=== PATIENT | female | born 1950 | race Asian ===

== ENCOUNTER 2018-03-17 15:44 | Emergency (ER) | payer MEDICARE, BC, MEDICAID ==
[~2018-03-17] VITALS: Ht 157.5 cm; Wt 61.2 kg
[2018-03-17 15:51] VITALS: BP 106/67
[2018-03-17] MEDS ORDERED: SILVER SULFADIAZINE CREAM 25 GM TUBE ONE (16:02)
--- NOTE | 2018-03-17 16:07 | NUR ---
PER DR. CORRAL, APPLY SILVADENE CREAM TO AFFECTED AREA. MEDICATION PULLED, WOUND CARE RENDERED, TOLERATED WELL.
[2018-03-17] MEDS ORDERED: SILVER SULFADIAZINE CREAM 25 GM TUBE TP ONE (16:30)
== END 2018-03-17 16:33 | disposition home or self-care (01) ==
LOC: ER 15:45
DX: T25.221A Burn of second degree of right foot, initial encounter (principal); T25.211A Burn of second degree of right ankle, initial encounter; E11.9 Type 2 diabetes mellitus without complications; X10.0XXA Contact with hot drinks, initial encounter; Y93.89 Activity, other specified; Y92.89 Other specified places as the place of occurrence of the external cause; Y99.8 Other external cause status
CPT/HCPCS: A4606; A6402; Z7610